=== PATIENT | female | born 1980 | race Caucasian/White ===

== ENCOUNTER 2022-03-04 15:11 | Emergency (ER) | payer OTHER, SELFPAY ==
[2022-03-04 15:30] VITALS: BP 121/72; PULSE 75; RESP 16; TEMP 36.9; O2SAT 98; BMI 28.7
--- NOTE | 2022-03-04 15:48 | DI.CT.S_ITS ---
PROCEDURE: CT CERVICAL SPINE WO CON INDICATIONS: head injury TECHNIQUE: Noncontrast 3 mm thick sections acquired from the skull base to the T4 level. Sagittal and coronal reformats were then constructed. For radiation dose reduction, the following was used: automated exposure control, adjustment of mA and/or kV according to patient size. COMPARISON: None. FINDINGS: Image quality: Excellent. Bones: No fractures or dislocations. Visualized superior ribs are intact. There is reversal the normal cervical lordosis. Normal bone mineralization. Craniovertebral relationships maintained Soft tissues: Prevertebral soft tissues are normal in thickness. No paravertebral hematomas. No apical pneumothoraces. IMPRESSION: Reversal the normal cervical lordosis may be related to positioning or muscle spasm. Approved by: Manjinder Cantu M.D. on 03/04/2022 at 15:16
--- NOTE | 2022-03-04 15:48 | DI.CT.S_ITS ---
PROCEDURE: CT HEAD/BRAIN WO CON INDICATIONS: head injury TECHNIQUE: Noncontrast 4.5 mm thick angled axial sections acquired from the foramen magnum to the vertex, with coronal and sagittal reformats. For radiation dose reduction, the following was used: automated exposure control, adjustment of mA and/or kV according to patient size. COMPARISON: None. FINDINGS: Image quality: Excellent. CSF spaces: Basal cisterns are patent. No extra-axial fluid collections. Ventricles are normal in size and shape. Brain: No midline shift. No intracranial masses or hemorrhage. Marie-white matter interface is normal. Skull and face: Calvarium and visualized facial bones are intact, without suspicious lesions. Sinuses: Visualized sinuses and mastoids are clear. IMPRESSION: No evidence of acute intracranial process. Dictated by: Pablo Jones M.D. on 03/04/2022 at 16:10 Approved by: Pablo Jones M.D. on 03/04/2022 at 16:10
--- NOTE | 2022-03-04 15:52 | DI.CT.S_ITS ---
PROCEDURE: CT FACIAL BONES WO CON INDICATIONS: head injury TECHNIQUE: Noncontrast 2.5 mm thick axial images acquired from the mandible through the frontal sinuses, with coronal and sagittal reformatting. For radiation dose reduction, the following was used: automated exposure control, adjustment of mA and/or kV according to patient size. COMPARISON: None. FINDINGS: Image quality: Excellent. Bones and teeth: Orbital cardoso are intact. Sinus cardoso show no fracture or deformity. Nasal bones and septum are intact. Visualized portions of the mandible demonstrate no fractures or subluxation. Zygomatic arches are intact. Pterygoid plates are intact. Visualized portions of the skull base and auditory canals are intact. Sinuses: Mucous retention cyst, right maxillary sinus. Otherwise, paranasal sinuses are aerated, without fluid levels, mucosal thickening, or mucoceles. Mastoid air cells are aerated. Soft tissues: No edema, masses, or fluid collections. No enlarged lymph nodes. No soft tissue lacerations or debris. Vascular: Visualized vascular structures appear normal in the absence of contrast. Bony vascular foramina and canals are intact. IMPRESSION: No evidence of displaced facial bone fracture or mandibular fracture. Dictated by: Pablo Jones M.D. on 03/04/2022 at 16:11 Approved by: Pablo Jones M.D. on 03/04/2022 at 16:12
--- NOTE | 2022-03-04 19:31 | ED.HEATRA ---
HPI - Head Injury General Chief complaint: Head Injury Stated complaint: head injury s/p sledding Time Seen by Provider: 03/04/22 19:14 Source: patient Mode of arrival: Ambulatory History of Present Illness HPI Narrative: Patient is a 42-year-old female who is here for evaluation of injuries that she sustained when she hit her head while sled riding. There was no loss of consciousness although she does report being dazed afterwards and she has had a headache since the event. A cervical collar was placed in triage secondary to neck discomfort. She is not on blood thinners. She reports no extremity injuries. Has not tried anything for the symptoms prior to arrival. Related Data Allergies Allergy/AdvReac Type Severity Reaction Status Date / Time Penicillins Allergy Verified 03/04/22 15:30 Review of Systems Constitutional Constitutional: Reports system reviewed and no additional complaints, except as documented Eyes Eyes: Reports system reviewed and no additional complaints, except as documented ENT Ears, Nose, Mouth, and Throat: Reports system reviewed and no additional complaints, except as documented Cardiovascular Cardiovascular: Reports system reviewed and no additional complaints, except as documented Musculoskeletal Musculoskeletal: Reports system reviewed and no additional complaints, except as documented Integumentary/Breasts Skin/Breast: Reports system reviewed and no additional complaints, except as documented Hematologic/Lymphatic On Anticoagulants: No Patient History Social History Smoking Status: Current every day smoker Smoking Status: Current every day smoker tobacco type: cigars Substance Use Type: marijuana Exam Initial Vital Signs Initial Vital Signs: Vital Signs Temperature 98.5 F 03/04/22 15:30 Pulse Rate 75 03/04/22 15:30 Respiratory Rate 16 03/04/22 15:30 Blood Pressure 121/72 03/04/22 15:30 Pulse Oximetry 98 03/04/22 15:30 Oxygen Delivery Method 03/04/22 15:30 Const General: cooperative and comfortable HENMT Head: contusion (Left temporal region.) Resp Effort & Inspection: normal respiratory effort Cardio Rate: regular rate Back/Spine/Pelvis Cervical Spine: collar present Skin Other: Superficial abrasion left temporal region Extrem General: normal to inspection Scores GCS [place] coma scale eye opening: Spontaneous Romero coma scale verbal response: Orientated [place] coma scale motor response: Obey commands Romero coma scale total score: 15 Course Orders Ordered: ED Orders 03/04/22 15:48 CT cervical spine wo con Stat CT head/brain wo con Stat 03/04/22 15:52 CT facial bones wo con Stat Vital Signs Vital signs: Vital Signs - 8 hr 03/04/22 15:30 Temperature 98.5 F Pulse Rate 75 Respiratory Rate 16 Blood Pressure 121/72 Pulse Oximetry 98 Oxygen Delivery Method Room Air MDM - Head Injury Imaging Data CT - cervical spine: Radiologist's Impression: [address] [address] XRay Report Signed Patient: Prema Hurley MR#: [id number] : 05/12/1956 Acct:[id number] Age/Sex: 65 / F Date of Service: 03/04/22 Loc: ED Accession Number: [id number] ?? Procedure: XR wrist RT min 3V Ordering Provider: Blayne Boyd D.O. PROCEDURE:? XR WRIST RT MIN 3V ? INDICATIONS: fall, deformity ? TECHNIQUE:? 4 views of the wrist were acquired.? ? COMPARISON:? None. ? FINDINGS:? ? Bones:? There is a comminuted intra-articular fracture of the distal radius with mild dorsal angulation.? A nondisplaced ulnar styloid fracture is suspected.? Background arthritic changes are seen in the hand. ? Scaphoid view:? Intact scaphoid. ? Soft tissues:? Soft tissue edema is seen surrounding the wrist. ? IMPRESSION:? Comminuted intra-articular mildly angulated fracture of the distal radius.? Nondisplaced ulnar styloid fracture. ? ? ? Approved by: Leo Stanley M.D. on 03/04/2022 at 18:40? CT scan - head: Radiologist's Impression: [address] [address] [address] Scan Report Signed Patient: Chica Moreno MR#: [id number] : 1980 Acct:[id number] Age/Sex: 42 / F Date of Service: 03/04/22 Loc: ED Accession Number: [id number] ?? Procedure: CT head/brain wo con Ordering Provider: Zeina Castro D.O. PROCEDURE:? CT HEAD/BRAIN WO CON ? INDICATIONS:? head injury ? TECHNIQUE:? Noncontrast 4.5 mm thick angled axial sections acquired from the foramen magnum to the vertex, with coronal and sagittal reformats.? For radiation dose reduction, the following was used:? automated exposure control, adjustment of mA and/or kV according to patient size.? ? COMPARISON:? None. ? FINDINGS:? Image quality:? Excellent.? ? CSF spaces:? Basal cisterns are patent.? No extra-axial fluid collections.? Ventricles are normal in size and shape.? ? Brain:? No midline shift.? No intracranial masses or hemorrhage.? Marei-white matter interface is normal.? ? Skull and face:? Calvarium and visualized facial bones are intact, without suspicious lesions.? ? Sinuses:? Visualized sinuses and mastoids are clear.? ? IMPRESSION:? No evidence of acute intracranial process. ? ? Dictated by: Pablo Jones M.D. on 03/04/2022 at 16:10 ? ? Approved by: Pablo Jones M.D. on 03/04/2022 at 16:10? face CT: Radiologist's Impression: [place] [address] CT Scan Report Signed Patient: Chica Moreno MR#: [id number] : 1980 Acct:[id number] Age/Sex: 42 / F Date of Service: 03/04/22 Loc: ED Accession Number: [id number] ?? Procedure: CT facial bones wo con Ordering Provider: Zeina Castro D.O. PROCEDURE:? CT FACIAL BONES WO CON ? INDICATIONS:? head injury ? TECHNIQUE:? Noncontrast 2.5 mm thick axial images acquired from the mandible through the frontal sinuses, with coronal and sagittal reformatting.? For radiation dose reduction, the following was used:? automated exposure control, adjustment of mA and/or kV according to patient size.? ? COMPARISON:? None. ? FINDINGS:? Image quality:? Excellent.? ? Bones and teeth:? Orbital cardoso are intact.? Sinus cardoso show no fracture or deformity.? Nasal bones and septum are intact.? Visualized portions of the mandible demonstrate no fractures or subluxation.? Zygomatic arches are intact.? Pterygoid plates are intact.? Visualized portions of the skull base and auditory canals are intact.? ? Sinuses:? Mucous retention cyst, right maxillary sinus.? Otherwise, paranasal sinuses are aerated, without fluid levels, mucosal thickening, or mucoceles.? Mastoid air cells are aerated.? ? Soft tissues:? No edema, masses, or fluid collections.? No enlarged lymph nodes.? No soft tissue lacerations or debris.? ? Vascular:? Visualized vascular structures appear normal in the absence of contrast.? Bony vascular foramina and canals are intact.? ? IMPRESSION:? No evidence of displaced facial bone fracture or mandibular fracture. ? ? Dictated by: Pablo Jones M.D. on 03/04/2022 at 16:11 ? ? Approved by: Pablo Jones M.D. on 03/04/2022 at 16:12?? MDM Narrative Medical decision making narrative: CT scans are unremarkable. The abrasion on her left temporal region needs no intervention here in the ER. She reports no extremity injuries. We did discuss head injuries and also concussions. We did discuss conservative measures that she could try to help with her headache. She was given return precautions. She expressed understanding and agreement. Discharge Plan Departure Patient Disposition: Home Clinical Impression: Closed head injury, Abrasion of scalp Instructions: DI for Closed Head Injury Activity Restrictions/Additional Instructions: Can eat like normal and sleep like normal. You can shower and you shampoo over the abrasion on your scalp. You can take Tylenol or ibuprofen for any discomfort. Contact your primary doctor for a follow-up. Return to the emergency department for any new symptoms. Visit Report Forms: Patient Portal/API
== END 2022-03-04 19:40 | disposition home or self-care (01) ==
PROVIDERS: Emergency Provider Emergency Medicine
DX: S00.01XA Abrasion of scalp, initial encounter (principal); W22.8XXA Striking against or struck by other objects, initial encounter; Y93.23 Activity, snow (alpine) (downhill) skiing, snowboarding, sledding, tobogganing and snow tubing; M54.2 Cervicalgia
CPT/HCPCS: 70450; 70486; 72125; 99284